=== PATIENT | male | born 1965 | race Caucasian/White ===

== ENCOUNTER 2016-08-20 14:56 | Outpatient (CLI) | payer OTHER ==
[2016-08-20 15:32] LABS: #Basophils 0.1 thou/uL (0.0-0.2); #Eosinphils 0.1 thou/uL (0.0-0.7); #Lymphocytes 2.9 thou/uL (1.20-3.40); #Monocytes 0.7 thou/uL (0.11-0.59); #Neutrophils 5.9 thou/uL (1.40-6.50); %Basophils 1.1 % (0.0-1.0); %Eosinophils 1.3 % (0.0-10.0); %Monocytes 7.6 % (0.0-10.0); Hematocrit 45.8 % (42.0-52.0); Mean Platelet Volume 8.3 fL (7.4-10.4); Red Blood Cell (RBC) Count 5.27 mill/uL (4.70-6.10); White Blood Cell (WBC) Count 9.7 thou/uL (4.8-10.8)
[2016-08-20 15:47] LABS: ALT (SGPT) 11 U/L (0-55); AST (SGOT) 14 U/L (5-34); Alkaline Phosphatase 80 U/L (40-150); Anion Gap 15 mmol/L (10-20); BUN (Urea Nitrogen) 9 mg/dL (8.4-25.7); Bilirubin, Total 0.5 mg/dL (0.2-1.2); Calc. Creatinine Clearance 0 mL/min (70-130); Calcium 9.3 mg/dL (7.8-10.44); Carbon Dioxide 26 mmol/L (22-29); Chloride 99 mmol/L (98-107); Estimated GFR-MDRD 63; Globulin 2.7 g/dL (2.4-3.5); LDL Cholesterol, Calculated 69 mg/dL; Protein, Total 7.1 g/dL (6.0-8.3)
[2016-08-21 16:50] LABS: Free T3 3.22 pg/mL (1.71-3.71)
== END 2016-08-20 14:57 | disposition home or self-care (01) ==
LOC: HPCALD 14:56
PROVIDERS: ATTEND Family Medicine
DX: Z12.5 Encounter for screening for malignant neoplasm of prostate (principal); I10 Essential (primary) hypertension; E04.1 Nontoxic single thyroid nodule; Z13.6 Encounter for screening for cardiovascular disorders
CPT/HCPCS: 36415; 80053; 80061; 84439; 84443; 84481; 85025; G0103